=== PATIENT | male | born 1985 | race African-American/Black ===

== ENCOUNTER 2017-12-24 17:06 | Emergency (ER) | payer OTHER ==
[~2017-12-24] VITALS: Ht 185.4 cm; Wt 88.1 kg
[2017-12-24 17:12] VITALS: BP 110/62
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
--- NOTE | 2017-12-24 17:18 | NUR ---
PT AMBULATES TO CHAIR A
--- NOTE | 2017-12-24 17:20 | NUR ---
Patient being evaluated by physician at bedside.
[2017-12-24 17:46] VITALS: BP 110/62
--- NOTE | 2017-12-24 17:46 | NUR ---
Patient discharged with v/s stable. Written and verbal after care instructions given and explained. Patient alert, oriented and verbalized understanding of instructions. Ambulatory with steady gait. All questions addressed prior to discharge. ID band removed. Patient advised to follow up with PMD. Rx of KEFLEX, HYDROCORTISONE 2.5% TOPICAL CREAM given. Patient educated on indication of medication including possible reaction and side effects. Opportunity to ask questions provided and answered.
== END 2017-12-24 17:46 | disposition home or self-care (01) ==
LOC: MED 17:06
DX: L73.8 Other specified follicular disorders (principal)
CPT/HCPCS: 99283

== ENCOUNTER 2018-03-20 20:08 | Emergency (ER) | payer SELFPAY ==
[~2018-03-20] VITALS: Ht 182.9 cm; Wt 87.5 kg
[2018-03-20 20:12] VITALS: BP 117/68
--- NOTE | 2018-03-20 20:14 | NUR ---
TO BED # 12 VIA W/C, REPORT GIVEN TO EDITH LAWS.
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
--- NOTE | 2018-03-20 21:49 | NUR ---
Dr. De La Rosa evaluating patient at bedside.
[2018-03-20] MEDS ORDERED: KETOROLAC 60 MG/2 ML VIAL IM ONE (22:20)
--- NOTE | 2018-03-20 22:23 | NUR ---
X-Ray at bedside.
[2018-03-20] MEDS ORDERED: HYDROcodone/APAP 5/325 MG 1 TAB TAB PO ONE (23:05)
[2018-03-20 23:10] VITALS: BP 118/64
--- NOTE | 2018-03-20 23:10 | NUR ---
Patient discharged with v/s stable. Written and verbal after care instructions given and explained. Patient alert, oriented and verbalized understanding of instructions. Wheel Chair Assisted with to car. All questions addressed prior to discharge. ID band removed. Patient advised to follow up with PMD. Rx of NORCO AND MOTRIN given. Patient educated on indication of medication including possible reaction and side effects. Opportunity to ask questions provided and answered.
== END 2018-03-20 23:10 | disposition home or self-care (01) ==
LOC: MED 20:08
DX: S30.1XXA Contusion of abdominal wall, initial encounter (principal); Y04.0XXA Assault by unarmed brawl or fight, initial encounter; Y93.89 Activity, other specified; Y99.8 Other external cause status; Y92.89 Other specified places as the place of occurrence of the external cause
CPT/HCPCS: 73502; 99284; J1885